=== PATIENT | female | born 1930 | race Caucasian/White ===

== ENCOUNTER 2017-11-12 10:52 | Inpatient (IN) | payer MEDICARE, BC ==
[~2017-11-12] VITALS: Ht 157.5 cm; Wt 59.5 kg
--- NOTE | ~2017-11-12 | HEMODYNAMI ---
PATIENT:VIVIEN GARCIA MEDICAL RECORD: [id number] : [birth year] LOCATION:[facility] ADMISSION DATE: 11/12/17 Generatedon:11/14/201714:10 Patient name: VIVIEN GARCIA Patient #: [id number] SSN: : [id number] Date of study: 11/14/2017 Page: Of Hemodynamic Procedure Report Patient Data Patient Demographics Procedure consent was obtained First Name: VIVIEN Gender: Female Last Name: RADHA : 1930 [facility] Initial: J Age: 87 year(s) Patient #: [id number] Race: Unknown Additional ID: [id number] Contact details Address: [address] [place] [address] State: [place] City: [facility] [place] Zip code: [address] Past Medical History Allergies: No known allergies Admission Admission Data Admission Date: 11/12/2017 Admission Time: 17:53 Room #: D.CL02 Lab Results Lab Result Date: 11/14/2017 Lab Result Time: 0:00 Biochemistry Name Units Result Min Max BUN mg/dl 32 --(----)-* 7 18 Creatinine mg/dl 0.9 --(-*--)-- 0.6 1.3 CBC Name Units Result Min Max Hemoglobin g/dl 12.8 -*(----)-- 13.5 17.5 Procedure Procedure Types Cath Procedure Diagnostic Procedure C [facility] w/Coronaries Sedation Charges Moderate Sedation up to 15 minutes PCI Procedure Coronary Stent Coronary Stent Initial Procedure Description Procedure Date Procedure Date: 11/14/2017 Procedure Start Time: 13:26 Procedure End Time: 13:54 Procedure Staff Name Function Amanda Alonso RN Nurse Carlo Gonzalez MD Performing Physician Cristian Jordan RT Monitor Alicia Jacobsen RT Scrub Procedure Data Cath Procedure Fluoroscopy Diagnostic fluoroscopy Total fluoroscopy Time: 6.8 time: 6.8 min min Diagnostic fluoroscopy Total fluoroscopy dose: 450 dose: 450 mGy mGy Contrast Material Contrast Material Type Amount (ml) Isovue 300 95 Entry Location Entry Primary Successful Side Size Upsize Upsize Entry Closure Succes sful Closure Location (Fr) 1 (Fr) 2 (Fr) Remarks Device Remarks Femoral Right 5 Fr 6 Fr Exoseal artery Short Estimated blood loss: 10 ml Diagnostic catheters Device Type Used For End Catheter Placement MULTIPACK JL 4.0 5Fr Procedure catheter MULTIPACK 3DRC 5Fr Procedure catheter MULTIPACK Pigtail 5 Fr Procedure catheter Procedure Complications No complications Procedure Medications Medication Administration Route Dosage Oxygen NC 2 l/min Lidocaine 2% added to field 20 Heparin Flush Bag added to field 2 bags (1000units/500ml NS) 0.9% NaCl I.V. 100 ml/hr Versed I.V. 1 mg Fentanyl I.V. 50 mcg Versed I.V. 1 mg Fentanyl I.V. 50 mcg Heparin Bolus I.V. 6000 units Versed I.V. 0.5 mg Plavix P.O. 600 mg Hemodynamics Rest HGB: 12.8 (g/dl) Heart Rate: 87 (bpm) Pressure Samples Time Site Value (mmHg) Purpose Heart Use Rate(bpm) 13:32 LV 137/-15,4 Snapshot 85 Gradients Valve Time Site Site Mean SEP/DFP Peak To Heart Use 1 2 (mmHg) (sec/min) Peak Rate (mmHg) (bpm) Aortic 13:33 LV AO 82 Snapshots Pre Cath Intra NCS Post Cath Vital Signs Time Heart Resp SPO2 NIBP (mmHg) Rhythm Pain Sedation Rate (ipm) (%) Status Level (bpm) 13:21:22 96 13 98 187/75(137) NSR 0 (11) 10(A) , No pain 13:26:13 83 17 98 137/63(105) NSR 0 (11) 10(A) , No pain 13:30:59 80 16 94 126/48(98) NSR 0 (11) 9(A) , No pain 13:35:46 83 16 94 117/54(91) NSR 0 (11) 9(A) , No pain 13:40:31 79 14 97 112/53(81) NSR 0 (11) 9(A) , No pain 13:45:14 80 15 97 106/47(77) NSR 0 (11) 9(A) , No pain 13:49:56 82 16 99 123/57(94) NSR 0 (11) 9(A) , No pain 13:54:41 90 17 99 141/75(120) NSR 0 (11) 10(A) , No pain Medications Time Medication Route Dose Verified Delivered Reason Notes Effectiveness by by 13:20:07 0.9% NaCl I.V. 100 Carlo Buffie Per physician ml/hr Carlos Alonso RN 13:20:43 Oxygen NC 2 Carlo Buffie used for l/min Carlos Alonso RN procedure 13:20:51 Lidocaine 2% added 20ml Carlo Carlo for local to vial Carlos Gonzalez MD anesthetic field 13:20:57 Heparin Flush added 2 Carlo Carlo used for Bag to bags Carlos Gnozalez MD procedure (1000units/500ml field NS) 13:23:00 Fentanyl I.V. 50 Carlo Buffie for sedation mcg Carlos Alonso RN 13:23:54 Versed I.V. 1 mg Carlo Buffie for sedation Carlos Alonso RN 13:28:25 Versed I.V. 1 mg Carlo Buffie for sedation Carlos Alonso RN 13:28:29 Fentanyl I.V. 50 Carlo Buffie for sedation mcg Carlos Alonso RN 13:37:47 Heparin Bolus I.V. 6000 Carlo Buffie for verifi ed units Carlos Alonso RN anticoagulation with dr gonzalez 13:39:13 Versed I.V. 0.5 Carlo Buffie for sedation mg Carlos Alonso RN 13:57:54 Plavix P.O. 600 Carlo Buffie for mg Carlos Alonso RN antiplatelet therapy Procedure Log Time Note 12:07:03 H&P Date Dictated: 11/12/2017 Within 30 days and on chart.. 12:07:33 Lab Result : Hemoglobin 12.8 g/dl 12:07:33 Lab Result : Creatinine 0.9 mg/dl 12:07:33 Lab Result : BUN 32 mg/dl 12:41:41 Diagnostic Cath status Elective 12:41:42 Time tracking: Regular hours 12:41:47 Plan of Care:Hemodynamics will remain stable., Cardiac rhythm will remain stable., Comfort level will be maintained., Respiratory function will remain adequate., Patient/ family verbilizes understanding of procedure., Procedure tolerated without complication., Recovers from procedure without complications.. 12:46:58 Amanda Alonso RN sent for patient. Start room use. 13:06:25 Patient received from Med II to CCL 1 Alert and oriented. Tansferred to table in Supine position. 13:06:26 Correct patient and procedure confirmed by team. 13:06:26 Warm blankets applied, and regan hugger turned on for patient comfort. 13:06:28 ECG and BP/O2 sat monitors applied to patient. 13:06:28 Signed procedure consent form obtained from patient. 13::31 Pre-op teaching completed and patient verbalized understanding. 13::31 Pre-procedure instructions explained to patient. 13:06:38 Family in waiting room. 13:06:40 Patient NPO since Midnight. 13:06:45 Patient allergic to No known allergies 13:19:37 Vital chart was started 13:19:48 Baseline sample Acquired. 13:19:52 Rhythm: sinus rhythm 13:19:53 Full Disclosure recording started 13:19:57 Is the patient allergic to Iodine/contrast media? No. 13:19:59 Is patient on blood thinner?No 13:20:00 Patient diabetic? No. 13:20:02 Previous problem with sedation/anesthesia? No ? 13:20:03 Snore? Yes 13:20:04 Sleep apnea? No 13:20:05 Deviated septum? No 13:20:06 Opens mouth fully? Yes 13:20:07 0.9% NaCl 100 ml/hr I.V. was administered by Amanda Alonso RN; Per physician; 13:20:07 Sticks out tongue? Yes 13:20:08 Airway obstruction? No ? 13:20:09 Dentures? No ? 13:20:12 Pre procedure: right dorsailis pedis pulse 2+ Normal; easily identifiable; not easily obliterated 13:20:13 Patient pain scale 0/10 ?. 13:20:26 IV patent on arrival in left antecubital with 0.9% NaCl at [facility]. 13:20:28 Lab results completed and on chart. 13:20:33 Right groin area was prepped with chlora-prep and draped in sterile fashion 13:20:35 Sharps counted by scrub and verified by R.N. 13:20:35 Alarms reviewed by R. N. 13:20:37 Use device set Femoral Dx 13:20:38 ACIST Syringe (79986) opened to sterile field. 13:20:40 ACIST Hand Control (68146) opened to sterile field. 13:20:41 ACIST Manifold (62089) opened to sterile field. 13:20:43 Oxygen 2 l/min NC was administered by Amanda Alonso RN; used for procedure; 13:20:43 Tegaderm 4 x 4 (1626W) opened to sterile field. 13:20:45 PERCUTANEOUS ENTRY 19GA needle opened to sterile field. 13:20:46 Bag Decanter (2002S) opened to sterile field. 13:20:47 Medline Cath Pack ([id number]) opened to sterile field. 13:20:48 SHEATH 5FR [place] (GZN252) opened to sterile field. 13:20:49 DIAGNOSTIC WIRE .035 260cm J wire (525473) opened to sterile field. 13:20:50 DIAGNOSTIC Multipack 5Fr catheter set (OQ0200) opened to sterile field. 13:20:51 Lidocaine 2% 20ml vial added to field was administered by Carlo Gonzalez MD; for local anesthetic; 13:20:57 Heparin Flush Bag (1000units/500ml NS) 2 bags added to field was administered by Carlo Gonzalez MD; used for procedure; 13:21:01 Physician arrived 13:21:02 Final Timeout: patient, procedure, and site verified with staff and physician. All members of the team are in agreement. 13:21:02 --------ALL STOP TIME OUT------ 13:21:04 Right groin site verified by team. 13:21:06 Physical assessment completed. ASA score P 2 - A patient with mild systemic disease as per Carlo Gonzalez MD. 13:21:08 Sedation plan: IV Moderate Sedation Medication:Versed, Fentanyl 13:23:00 Fentanyl 50 mcg I.V. was administered by Amanda Alonso RN; for sedation; 13::54 Versed 1 mg I.V. was administered by Amanda Alonso RN; for sedation; 13::04 Zero performed for pressure channel P1 13:26:11 Procedure started. 13:26:13 Local anesthetic to right femoral artery with Lidocaine 2% by Carlo Gonzalez MD.INITIAL ACCESS ONLY 13:26:22 A 5 Fr sheath was inserted into the Right Femoral artery 13:26:50 A MULTIPACK JL 4.0 5Fr catheter was advanced over the wire and used for Procedure. 13:27:54 LCA angiography performed. 13:28:25 Versed 1 mg I.V. was administered by Amanda Alonso RN; for sedation; 13:28:29 Fentanyl 50 mcg I.V. was administered by Amanda Alonso RN; for sedation; 13:28:50 Catheter exchanged over wire. 13:29:15 Catheter exchanged over wire. 13:29:31 A MULTIPACK 3DRC 5Fr catheter was advanced over the wire and used for Procedure. 13:30:30 RCA angiography performed. 13:30:52 Catheter exchanged over wire. 13:30:56 A MULTIPACK Pigtail 5 Fr catheter was advanced over the wire and used for Procedure. 13:31:36 TUBING High Pressure Extension Tubing (Carlos) ([id number]) opened to sterile field. 13:31:37 INFLATOR Merit BasixCompak (CH7320) opened to sterile field. 13:31:55 SHEATH 6FR [place] (KYD430) opened to sterile field. 13:33:00 LV gram done using TATE 13:33:02 Injector settings: Ml/sec: 10, Volume: 20, 13:33:10 EF : 55 % 13:33:41 WHISPER 300cm guide wire ([id number]) opened to sterile field. 13:33:48 GUIDE 6FR AR 1.0 catheter (NP7ML55) opened to sterile field. 13:33:52 Catheter removed. 13:33:59 Sheath upsized to a 6 Fr Short. 13:34:05 6 Fr ar 1 guide catheter was inserted over the wire 13:37:47 Heparin Bolus 6000 units I.V. was administered by Amanda Alonso RN; for anticoagulation; verified with dr gonzalez 13:39:13 Versed 0.5 mg I.V. was administered by Amanda Alonso RN; for sedation; 13:39:37 whisper wire advanced. 13:39:49 Wire advanced across lesion. 13:42:29 Inflation number: 1 A MAVERICK 2.0 X 15 balloon ([id number]) was prepped and advanced across the Mid RCA, then inflated to 12 ILDA for 0:10 (min:sec). 13:43:26 Balloon removed over the wire. 13:46:53 BMW 300cm [place] 2 J wire ([id number]) opened to sterile field. 13:48:49 Inflation Number: 2 A INTEGRITY OTW 3.0 X 18 stent ([id number]) was prepped and advanced across the Mid RCA. The stent was deployed at 13 ILDA for 0:10 (min:sec). 13:49:30 Stent catheter was removed intact over wire. 13:49:31 Wire removed. 13:49:35 Guide catheter removed. 13:49:43 EXOSEAL 6Fr (EX600) opened to sterile field. 13:51:31 Sheath removed intact; hemostasis achieved with Exoseal to the Right Femoral artery. 13:51:32 Procedure ended.(Physican Out) 13:52:09 Fluoroscopy time 06.80 minutes. 13:52:12 Fluoroscopy dose: 450 mGy 13:52:12 Flurop Dose total: 450 13:52:16 Contrast amount:Isovue 300 95ml. 13:52:17 Sharps counted by scrub and verified by R.N. 13:52:18 Insertion/operative site no bleeding no hematoma. 13:52:21 Post-op/insertion site Right Femoral artery dressed using a 4 x 4 and Tegaderm. 13:52:24 Post right femoral artery:stable, soft, clean and dry 13:52:26 Post Procedure Pulses reassessed and unchanged 13:52:30 Post procedure: right dorsailis pedis pulse 2+ Normal; easily identifiable; not easily obliterated. 13:52:34 Post procedure rhythm: unchanged. 13:52:36 Estimated blood loss: 10 ml 13:52:41 Post-procedure physical assessment completed. ASA score P 2 - A patient with mild systemic disease as per Carlo Gonzalez MD. 13:52:42 Patient needs reinforcement of post procedure teaching. 13:52:42 Post procedure instruction explained to patient.Patient verbalizes understanding. 13:53:03 Procedure type changed to Cath procedure, Diagnostic procedure, Sedation Charges, Moderate Sedation up to 15 minutes, LHC, C w/Coronaries, PCI procedure, Coronary Stent, Coronary Stent Initial 13:54:21 Procedure and supply charges have been captured, reviewed, submitted and are correct. 13:54:23 Procedure Complication : No complications 13:54:27 See physician's report for complete and final results. 13:54:27 Vital chart was stopped 13:54:28 Report given to Pre/Post Procedure Room. 13:54:30 Patient transfered to Pre/Post Procedure Room with Stretcher. 13:54:32 Full Disclosure recording stopped 13:54:32 Procedure ended. 13:54:36 End room use (Document Last) 13:57:54 Plavix 600 mg P.O. was administered by Amanda Alonso RN; for antiplatelet therapy; 14:09:45 FEMSTOP Gold (G10945) opened to sterile field. 14:09:49 Femstop placed over the right femoral artery at 126 mmHg. Hemostasis achieved. Intervention Summary Intervention Notes Time ActionType Lesion and Equipment Action# Pressure Duration Attributes Used 13:42:29 Inflate Mid RCA MAVERICK 2.0 1 12 00:10 balloon X 15 balloon ([id number]) 13:48:49 Place stent Mid RCA INTEGRITY 2 13 00:10 OTW 3.0 X 18 stent ([id number]) Device Usage Item Name Manufacture Quantity Catalog Number Hospital Part Current Min imal Lot# / Charge Number Stock Stock Serial# Code ACIST Acist 1 60616 198575 721206 029344 20 Syringe Medical (46831) Systems Inc ACIST Hand Acist 1 29984 519802 236649 231506 5 Control Medical (42752) Systems Inc ACIST Acist 1 32355 826802 479293 501023 5 Manifold Medical (32324) Systems Inc Tegaderm 4 x 3M 1 1626W 507782 063456 008054 5 4 (1626W) PERCUTANEOUS Cook Medical 1 C72603 736819 230065 5 ENTRY 19GA needle Bag Decanter Microtek 1 2001S 034504 66161 384581 5 (2001S) Medical Inc. Medline Cath Cardinal 1 [id number] 422728 43275 122349 5 Pack Health ([id number]) SHEATH 5FR Terumo 1 QJK876 161258 326006 124594 40 [place] (IJW337) DIAGNOSTIC St Scar 1 381841 908858 805448 934524 30 WIRE .035 260cm J wire (989714) DIAGNOSTIC Cardinal 1 DC2540 405862 22508 696985 30 Multipack Health 5Fr catheter set (HQ4263) MULTIPACK JL Cardinal 1 794085 5 4.0 5Fr Health catheter MULTIPACK Cardinal 1 356062 5 3DRC 5Fr Health catheter MULTIPACK Cardinal 1 875400 5 Pigtail 5 Fr Health catheter TUBING High Merit 1 [id number] 806951 72774 774701 10 Pressure Medical Extension Tubing (Gonzalez) (AA7233O) INFLATOR Merit 1 QE2604 128887 001511 563069 15 Merit Medical BasixCompak (AY5838) SHEATH 6FR Terumo 1 DOS442 409778 177837 503954 40 [place] (UAV199) WHISPER Ha 1 [id number] 733741 349636 267586 5 300cm guide Vascular wire ([id number]) GUIDE 6FR AR Medtronic 1 DF4QL66 982569 77665 215706 1 1.0 catheter (JE3IB00) MAVERICK 2.0 [place] 1 [id number] 681849 239673 423645 1 [id number] X 15 balloon Scientific ([id number]) BMW 300cm Ha 1 [id number] 783482 344429 516225 5 [place] 2 Vascular J wire (9001433A) INTEGRITY Medtronic 1 [id number] 128102 180903 7 [id number] OTW 3.0 X 18 stent ([id number]) EXOSEAL 6Fr Cardinal 1 EX600 727244 388177 696461 10 (EX600) Health FEMSTOP Gold St Scar 1 T25610 604034 404178 504319 5 (R04344) Signature Audit [place] Stage Time Signature Unsigned Intra-Procedure 11/14/2017 Cristian Jordan RT(R) 1:58:58 PM RT(R) 11/14/2017 2:09:32 PM Intra-Procedure 11/14/2017 Cristian Jordan 2:10:36 PM RT(R) Signatures Monitor : Cristian Jordan RT Signature : Date : Time : [facility] [address] [place] [address]
--- NOTE | ~2017-11-12 | CN ---
PATIENT NAME:VIVIEN GARCIA MEDICAL RECORD: [id number] : [birth year] LOCATION:. D.2119 ADMIT DATE: 11/12/17 ACCOUNT: [id number] CONSULTING PHYSICIAN: ELISA HELM MD REFERRING PHYSICIAN: ELISA HELM MD DATE OF CONSULTATION: 11/12/2017 CHIEF COMPLAINT: Heaviness in the chest. HISTORY OF PRESENT ILLNESS: This is an 87-year-old female who was shopping with her daughter and felt a heaviness in the left side of her chest and now her left arm. She denies nausea, vomiting, diaphoresis. She took 2 aspirin and she and her daughter thought she should probably have to get this looked at. She has no previous history of coronary artery disease. She was brought to the ER. Her first troponin level was 0.032 but the second one was elevated at 0.094. Rest of her labs looked pretty good. Chest x-ray showed minimal interstitial prominence. CT of the head showed no acute process. She is admitted for further evaluation. Dr. Gonzalez is the admitting physician. Dr. Mckenna is the consulting. PAST MEDICAL AND SURGICAL HISTORY: Hypertension, osteopenia, fibromyalgia, hypercholesterolemia, and osteoarthritis. PAST SURGICAL HISTORY: Hysterectomy and right total knee arthroplasty. HABITS: Never smoked. No alcohol or drugs. SOCIAL HISTORY: She is . HOME MEDICATIONS: Include lisinopril 2.5 every day, Celebrex 200 mg once a day, multivitamin once a day, tramadol only if needed for arthritis. FAMILY HISTORY: Father with liver problems. Mother is . She had a stroke. ALLERGIES: REPORTEDLY TO SULFA. REVIEW OF SYSTEMS: GENERAL: No major weight changes. HEENT: No particular sinus or allergy problems. RESPIRATORY: Has no trouble with emphysema or asthma. CARDIAC: No history of coronary artery disease. GASTROINTESTINAL: No reflux, diarrhea or constipation. GENITOURINARY: No significant problems there. MUSCULOSKELETAL: Has arthritic aches and pains. NEUROLOGIC: No migraines. No seizures. PSYCHIATRIC: Denies depression or melancholia. PHYSICAL EXAMINATION: VITAL SIGNS: Temperature 97.9, pulse 87, respirations 17, blood pressure 147/61, O2 sat 98%. GENERAL: She does not appear in acute distress. She is awake and alert. HEENT: Grossly within normal limits. NECK: Supple. No JVD or bruit. HEART: Regular rate and rhythm without murmur. CONSULT REPORT [id number] RADHAVIVIEN Lissette LUNGS: Fairly clear. ABDOMEN: Soft, flat, nontender. EXTREMITIES: No edema. She has arthritic aches and pains. LABORATORY DATA: Troponin elevated to 0.094 as above. CBC is normal. Basic metabolic panel is normal. Liver functions are normal. Total cholesterol 188, LDL 114, HDL 58, triglycerides 82. Chest x-ray with minimal interstitial prominence. CT of the head showed no acute process. ASSESSMENT: 1. Chest pain with elevated troponin. 2. Hypertension. 3. Arthritis. PLAN: Dr. Gonzalez has been consulted and has seen the patient. We will cycle enzymes. Other tests and procedures as warranted. TRANSINT:[id number] Voice Confirmation ID: [id number] DOCUMENT ID: [id number] ELISA HELM MD at 0826 CC: [id number] DICTATION DATE: 11/13/171911 TALENT ACQUISITION ASSISTANT: 11/14/17 0125 [facility] [address] [id number]
[~2017-11-12 10:52] MED LIST: CELEBREX200 MG; HYDROCODONE-APA1 TAB PO; LISINOPRIL2.5 MG PO; MULTIPLE VITAMI1 TA1 PO
[2017-11-12 12:09] LABS: BASOPHILS 0.4 % (0-2); EOSINOPHILS 2.2 % (0-7); HEMATOCRIT 36.3 % (36.0-48.0); HEMOGLOBIN 11.9 g/dL (12-16); IMMATURE GRANULOCYTES 0.1 % (0-5); LYMPHOCYTES 13.1 % (15-50); MCH 28.7 pg (26.0-34.0); MCHC 32.8 g/dL (31.0-37.0); MCV 87.5 fL (80.0-100.0); MEAN PLATELET VOLUME 9.2 fL (7.4-10.4); MONOCYTES 11.3 % (2-11); NEUTROPHILS 72.9 % (40-80); PLATELET COUNT 200 10x3/uL (130-400); RBC 4.15 10x6/uL (4.00-5.40); WBC 6.8 10x3/uL (4.8-10.8)
[2017-11-12 12:30] LABS: ALBUMIN 3.3 g/dL (3.4-5.0); ALKALINE PHOSPHATASE 96 U/L (46-116); ALT (SGPT) 16 U/L (10-68); BILIRUBIN - TOTAL 0.19 mg/dL (0.2-1.3); CALC OSMOLALITY 282 mosm/kg (275-300); CALCIUM 9.1 mg/dL (8.5-10.1); CARBON DIOXIDE 25.6 mmol/L (21.0-32.0); CHLORIDE - SERUM 104 mmol/L (98-107); GLUCOSE 93 mg/dL (74-106); PROTEIN - SERUM 6.5 g/dL (6.4-8.2); SODIUM 137 mmol/L (136-145); UREA NITROGEN 38 mg/dL (7-18); eGFR NON AFRICAN AMERICAN 55 mL/min (90-120)
[2017-11-12 12:41] LABS: CHOL - HDL RATIO 3.2 ratio (2.3-4.1); CHOLESTEROL, TOTAL 188 mg/dL (0-200); CKMB 0.7 U/L (0.0-3.6); CREATINE KINASE 51 UL (21-215); HDL CHOLESTEROL 58 mg/dL (32-96); LDL CHOLESTEROL 114 mg/dL (0-100); TRIGLYCERIDE 82 mg/dL (30-200); TROPONIN-I 0.032 ng/mL (0.000-0.060)
[2017-11-12 19:00] VITALS: BP 143/58
[2017-11-12 20:35] VITALS: BP 147/61; Ht 157.5 cm; Wt 59.5 kg
[2017-11-13] VITALS: BP 143/59
[2017-11-13 04:00] VITALS: BP 118/54
[2017-11-13 08:26] VITALS: BP 116/52
[2017-11-13 08:50] LABS: TROPONIN-I 0.034 ng/mL (0.000-0.060)
[2017-11-13 08:50] LABS: BASOPHILS 0.9 % (0-2); EOSINOPHILS 6.2 % (0-7); HEMOGLOBIN 12.8 g/dL (12-16); IMMATURE GRANULOCYTES 0.2 % (0-5); LYMPHOCYTES 29.6 % (15-50); MCH 28.8 pg (26.0-34.0); MCHC 32.8 g/dL (31.0-37.0); MCV 87.6 fL (80.0-100.0); MEAN PLATELET VOLUME 9.7 fL (7.4-10.4); MONOCYTES 12.6 % (2-11); NEUTROPHILS 50.5 % (40-80); PLATELET COUNT 204 10x3/uL (130-400); RBC 4.45 10x6/uL (4.00-5.40); RDW 14.2 % (11.5-14.5)
[2017-11-13 08:52] LABS: ANION GAP 10.3 mmol/L (8-16); CALCIUM 9.6 mg/dL (8.5-10.1); CARBON DIOXIDE 26.8 mmol/L (21.0-32.0); CREATININE - SERUM 0.9 mg/dL (0.6-1.3); POTASSIUM - SERUM 4.1 mmol/L (3.5-5.1)
[2017-11-13 08:53] LABS: WBC 4.7 10x3/uL (4.8-10.8)
[2017-11-13 11:37] VITALS: BP 121/53
[2017-11-13 16:59] VITALS: BP 114/54
[2017-11-13 22:30] VITALS: BP 162/57
[2017-11-14 00:30] VITALS: BP 126/636
[2017-11-14 04:30] VITALS: BP 131/60
[2017-11-14 09:29] VITALS: BP 116/65
[2017-11-14 12:23] VITALS: BP 124/58
[2017-11-14] MEDS ORDERED: PLAVIX75 MG PO (13:57)
[2017-11-14] MEDS ORDERED: BAYER CHEWABLE81 MG PO (13:57)
[2017-11-14 19:00] VITALS: BP 118/56
[2017-11-15] VITALS: BP 104/52
[2017-11-15 04:00] VITALS: BP 101/40
[2017-11-15 08:06] VITALS: BP 112/47
== END 2017-11-15 11:29 | disposition home or self-care (01) | DRG 249 ==
LOC: D.ER 10:52 → D.M2 17:53 → D.EDHOLD 17:53 → D.M2 19:05 → D.CLR 11-14 14:01 → D.M2 11-14 16:39
PROVIDERS: Emergency Medicine; Internal Medicine Cardiovascular Disease
PROC: B2111ZZ Fluoroscopy of Multiple Coronary Arteries using Low Osmolar Contrast (ICD-10-PCS; 2017-11-14)
PROC: B2151ZZ Fluoroscopy of Left Heart using Low Osmolar Contrast (ICD-10-PCS; 2017-11-14)
PROC: 02703DZ Dilation of Coronary Artery, One Artery with Intraluminal Device, Percutaneous Approach (ICD-10-PCS; principal; 2017-11-14 13:00)
PROC: 4A023N7 Measurement of Cardiac Sampling and Pressure, Left Heart, Percutaneous Approach (ICD-10-PCS; 2017-11-14 13:00)
DX: I21.4 Non-ST elevation (NSTEMI) myocardial infarction (principal); I10 Essential (primary) hypertension; M85.80 Other specified disorders of bone density and structure, unspecified site; E78.00 Pure hypercholesterolemia, unspecified; M19.90 Unspecified osteoarthritis, unspecified site; M79.7 Fibromyalgia; I25.119 Atherosclerotic heart disease of native coronary artery with unspecified angina pectoris

== ENCOUNTER → 2018-12-29 11:13 | Outpatient (CLI) | payer MEDICARE, BC ==
[~2018-12-29 11:13] MED LIST changes: +BAYER CHEWABLE81 MG PO; +PLAVIX75 MG PO
== END | disposition home or self-care (01) ==
LOC: D.HCCARDIO 11:13
DX: I25.10 Atherosclerotic heart disease of native coronary artery without angina pectoris (principal)